=== PATIENT | female | born 1970 | race Caucasian/White ===

== ENCOUNTER → 2018-04-24 08:04 | Outpatient (CLI) | payer OTHER, SELFPAY ==
--- NOTE | 2018-04-24 | DI.MRI.S_ITS ---
PROCEDURE: MR HAND LT WO CON INDICATIONS: Left hand swelling and pain TECHNIQUE: Noncontrast coronal T1 spin echo and T2 fast spin echo with fat saturation, axial proton density fast spin echo and T2 fast spin echo with fat saturation, sagittal T1 spin echo and STIR through the hand and fingers. COMPARISON: None. FINDINGS: Image quality: Excellent. Bones: The bones are normally aligned, without marrow contusions or fractures. No discrete bony erosions. There are small cysts within the scaphoid and lunate likely representing intraosseous ganglion cysts. Interphalangeal joints: The accessory and proper collateral ligaments appear intact. The volar plate demonstrates normal morphology. The extensor central slips appear intact on sagittal images. Metacarpophalangeal joints: The accessory and proper collateral ligaments appear intact, as well as the volar plate and adjacent deep transverse metacarpal ligaments. The sagittal bands of the extensor white appear intact. Extensor apparatus: The central slips insert normally on the middle phalangeal base. The conjoint and terminal tendons insert normally on the distal phalangeal bases. More proximal portions of the extensor tendons also appear normal. Flexor apparatus: The flexor digitorum superficialis and profundus tendons appear intact. There is a small amount of tenosynovial fluid along the flexor tendons of the third digit beginning at the level of the distal metatarsal shaft extending to the level of the distal interphalangeal joint. There is mild adjacent soft tissue edema along the volar aspect of the third digit. The annular and cruciform pulleys appear intact. Soft tissues: Visualized muscles demonstrate normal bulk and internal signal. No intramuscular masses identified. There is mild edema in the region of the triangle fiber cartilage complex which is incompletely evaluated. IMPRESSION: 1. Tenosynovitis along the flexor tendons of the third digit with mild associated soft tissue edema. No associated bone erosion or tendon disruption. The findings are likely secondary to a nonspecific infectious or inflammatory process such as from a penetrating injury or inflammatory arthritis among other etiologies. Recommend correlation clinically. 2. Mild edema in the triangular fibrocartilage complex is nonspecific and may also be associated with an inflammatory arthropathy or represent a sprain or contusion related to injury. No definite tear of the triangular fibrocartilage identified on the current study. 3. No bony erosions. Dictated by: Dominic Ch M.D. on 04/24/2018 at 8:24 Approved by: Dominic Ch M.D. on 04/24/2018 at 8:34
== END ==
PROVIDERS: Visit Provider Physician Assistant
DX: M79.642 Pain in left hand (principal); M65.842 Other synovitis and tenosynovitis, left hand; M79.89 Other specified soft tissue disorders
CPT/HCPCS: 73218